=== PATIENT | female | born 1935 | race Caucasian/White ===

== ENCOUNTER → 2025-09-20 08:45 | Outpatient (REF) | payer MEDICARE, OTHER, SELFPAY ==
[2025-09-20 09:15] VITALS: BP 145/73; BP_SYST 76
[2025-09-20 10:04] VITALS: BP 149/72
[2025-09-20 15:15] LABS: Body Fluid Second Tech US
== END ==
LOC: RADI 08:45
PROVIDERS: ATTENDING PHYSICIAN Internal Medicine Hematology & Oncology; FAMILY PHYSICIAN Family Medicine
DX: C50.919 Malignant neoplasm of unspecified site of unspecified female breast (principal); J91.0 Malignant pleural effusion
CPT/HCPCS: 32555; 71045; 82042; 82945; 83615; 84157; 87015; 87070; 87205; 88112; 88305; 88341; 88342; 88360; 89051

== ENCOUNTER → 2025-10-22 09:53 | Outpatient (REF) | payer MEDICARE, OTHER, SELFPAY ==
[2025-10-22 10:20] VITALS: BP 178/94; BP_SYST 86
[2025-10-22 11:00] VITALS: BP 161/72; BP_SYST 84
[2025-10-22 11:25] VITALS: BP 161/72
== END ==
LOC: RADI 09:53
PROVIDERS: ATTENDING PHYSICIAN Internal Medicine Hematology & Oncology
DX: J90 Pleural effusion, not elsewhere classified (principal); C50.112 Malignant neoplasm of central portion of left female breast
CPT/HCPCS: 32555; 71045

== ENCOUNTER → 2025-11-07 10:34 | Outpatient (REF) | payer MEDICARE, OTHER, SELFPAY ==
[2025-11-07 10:30] VITALS: BP 138/73; BP_SYST 75
[2025-11-07 11:08] VITALS: BP 130/102
== END ==
LOC: RADI 10:34
PROVIDERS: ATTENDING PHYSICIAN Internal Medicine Hematology & Oncology
DX: J90 Pleural effusion, not elsewhere classified (principal); C50.912 Malignant neoplasm of unspecified site of left female breast
CPT/HCPCS: 32555; 71045